=== PATIENT | female | born 1995 | race American Indian/Alaskan Native ===

== ENCOUNTER 2017-01-13 16:29 | Inpatient (IN) | payer MEDICAID ==
[2017-01-13] MEDS ORDERED: COLACE PO PRN (17:28)
[2017-01-13] MEDS ORDERED: MYLICON PO PRN (17:28)
[2017-01-13] MEDS ORDERED: ALUM-MAG HYDROX-SIMETH 200-200-20MG/5ML PO PRN (17:28)
[2017-01-13] MEDS ORDERED: MILK OF MAGNESIA PO PRN (17:28)
[2017-01-13] MEDS ORDERED: BENADRYL PO PRN (17:28)
[2017-01-13] MEDS ORDERED: AMBIEN PO PRN (17:28)
[2017-01-13] MEDS ORDERED: ZOFRAN IV PRN (17:28)
--- NOTE | 2017-01-13 17:40 | History and Physical Report ---
History of Present Illness Date of examination: 01/13/17 Date of admission: sent over from clinic for elevated BP Chief complaint: elevated BP History of present illness: 21 yo at 36+4 weeks admitted to [facility] for elevated BP. This patient has had limited care. Only 3 visits to [facility]. She was treated in for E.coli in urine . Past History Past Medical History: no pertinent history Past Surgical History: no surgical history Family/Genetic History: none Social history: no significant social history, single. denies: smoking, alcohol abuse - Obstetrical History Expected Date of Delivery: 02/06/17 Actual Gestation: 36 Week(s) 5 Day(s) : 1 Para: 0 Hx # Term Pregnancies: 0 Number of Pregnancies: 0 Spontaneous Abortions: 0 Induced : 0 Number of Living Children: 0 Medications and Allergies Allergies Allergy/AdvReac Type Severity Reaction Status Date / Time No Known Allergies Allergy Verified 01/13/17 18:36 Home Medications Medication Instructions Recorded Confirmed Last Taken Type EPINEPHrine [Epipen 2-Jordin] 0.3 mg IM DAILY PRN #1 kit 11/06/14 01/14/17 Unknown Rx predniSONE [Deltasone] 20 mg PO TID #15 tab 03/02/15 01/14/17 Unknown Rx Active Meds: Active Medications Acetaminophen (Tylenol) 650 mg PO Q4H PRN PRN Reason: Pain MILD(1-3)/Fever >100.5/CHARLES Al Hydrox/Mg Hydrox/Simethicone (Alum-Mag Hydrox-Simeth 665-957-32ml/5ml) 30 ml PO Q6H PRN PRN Reason: Indigestion Diphenhydramine HCl (Benadryl) 25 mg PO Q6H PRN PRN Reason: Itching Docusate Sodium (Colace) 100 mg PO Q12H PRN PRN Reason: Constipation Lactated Ringer's (Lactated Ringers) 1,000 mls @ 125 mls/hr IV DIRECT THOMAS Magnesium Hydroxide (Milk Of Magnesia) 30 ml PO QHS PRN PRN Reason: Laxative Effect Multivitamins/Iron/Calcium ( Vitamin) 1 each PO QDAY THOMAS Ondansetron HCl (Zofran) 4 mg IV Q6H PRN PRN Reason: Nausea And Vomiting Simethicone (Mylicon) 80 mg PO Q6H PRN PRN Reason: Gas pain Zolpidem Tartrate (Ambien) 10 mg PO ONCE PRN PRN Reason: Sleep Review of Systems Constitutional: weight gain Eyes: deferred Ears, nose, mouth and throat: deferred Breasts: deferred Gastrointestinal: no nausea, no vomiting Genitourinary: normal appearance, no vaginal bleeding, no vaginal discharge, no leakage of fluid, no contractions Rectal Exam: deferred Integumentary: deferred - Vital Signs Vital signs: Vital Signs Pulse BP 104 H 160/106 01/13/17 17:06 01/13/17 17:06 Temp Pulse Resp BP Pulse Ox 97 H 155/100 01/13/17 17:20 01/13/17 17:20 - Physical Exam Breasts: Positive: normal Cardiovascular: Regular rate, Normal S1, Normal S2 Lungs: Positive: Clear to auscultation, Normal air movement Abdomen: Positive: normal appearance, soft, normal bowel sounds. Negative: distention, tenderness Genitourinary (Female): Positive: normal external genitalia, normal perenium Vagina: Positive: normal moisture Uterus: Positive: enlarged Anus/Rectum: Positive: normal perianal skin Extremities: Positive: normal Deep Tendon Reflex Grade: Normal +2 - Obstetrical FHR: category 1 Results Result Diagrams: 01/13/17 17:59 01/13/17 17:59 All other labs normal. Assessment and Plan A/P HD#1 IUP 36+4 weeks, HTN assess for pree ( Admission) 1. Pree labs 2. EFM 3. US for BPP, size, ena, presentation 4. IOL for preeclampsia with cervidil 5. Mag initiated with mag protocol 6. emergency antihypertensive for >160/109
[2017-01-13 18:34] LABS: Bilirubin,Urine NEG (Negative); Blood,Urine NEG (Negative); Ketones,Urine NEG (Negative); Leukocyte Esterase,Urine TR (Negative); Mucus,Urine 2+ /HPF; Nitrite,Urine NEG (Negative); Protein,Urine <15 mg/dL mg/dL (Negative); Urobilinogen,Urine < 2.0 mg/dL (<2.0)
[2017-01-13 18:42] LABS: Hematocrit 33.4 % (30.3-42.9); Hemoglobin 10.6 gm/dl (10.1-14.3); Mean Corpuscular HGB Conc 32 % (30-34); Mean Corpuscular Volume 80 fl (79-97); Platelet Count 227 K/mm3 (140-440); Red Blood Count 4.19 M/mm3 (3.65-5.03); Red Cell Distribution Width 14.5 % (13.2-15.2); White Blood Count 11.5 K/mm3 (4.5-11.0)
[2017-01-13 18:44] LABS: Mean Corpuscular Hemoglobin 25 pg (28-32)
[2017-01-13 19:02] LABS: Alanine Aminotransferase 8 units/L (7-56); Lactate Dehydrogenase 243 units/L (91-180); Uric Acid 3.5 mg/dL (3.5-7.6)
[2017-01-13] MEDS ORDERED: CERVIDIL VG ONE (21:34)
[2017-01-13] MEDS ORDERED: MAGNESIUM SULFATE 4GM/100ML 4 GM/100 ML BAG IV ONE (21:43)
[2017-01-13] MEDS: MAGNESIUM SULFATE 40GM/1000ML 40 GM/1,000 ML BAG IV SCH ×2 (22:25→23:04)
[2017-01-14] MEDS: TYLENOL PO PRN ×3 (07:00→19:39)
--- NOTE | 2017-01-14 08:04 | Event Note ---
Date: 01/14/17 S: Denies, blurred vision, scotomata, epigastic pain VB or LOF. Good FM reported. voiced +CHARLES, but getting better after medication. O: BP 130-140/90 Magnesium @ 2 grams hr Urine: Mccullough present, patent, 700 cc @ 0315 and 1200cc @ 0745 Ext: trace pedal edema. 1+ reflexes, +SCD's FHT: reactive, category 1 UC: 2-5 x 50-60 mild SVE: Deferred, Cervidil due to be removed @v 1100 A: IUP at 36 weeks Preeclampsia Induction P: Active miranda't
--- NOTE | 2017-01-14 08:34 | Ultrasound Report ---
ULTRASOUND BIOPHYSICAL PROFILE: History: Gestational hypertension Technique: Transabdominal ultrasound with Doppler interrogation. 2 - breathing movements 2 - movements 2 - posture and tone 2 - Qualitative amniotic fluid volume 8 - TOTAL SCORE OF POSSIBLE 8 Heart Rate (bpm) 135
--- NOTE | 2017-01-14 08:37 | Ultrasound Report ---
OB ULTRASOUND History: Gestational hypertension Technique: Transabdominal ultrasound with Doppler interrogation. Gestation: Single Position: Cephalic Amniotic Fluid: Normal FRANSISCO = 14.7 cm Placenta: Anterior Placental Grade: 3 Heart Rate: 135 BPM BPD: 8.8 cm = 35 w 4 d HC: 32.3 cm = 36 w 4 d AC: 32.7 cm = 36 w 4 d FL: 7.1 cm = 36 w 4 d HC/AC Ratio: 0.99 Cephalic Index: 81.6 Estimated Weight: 2947 grams LMP: Not given Clinical age = 36 w 4 d EDC: 02/06/17 US Gest. Age = 36 w 2 d EDC: 01/2617
--- NOTE | 2017-01-14 08:40 | Ultrasound Report ---
ULTRASOUND OB VELOCIMETRY UMBILICAL ARTERY HISTORY: Gestational hypertension. FINDINGS: Transabdominal ultrasound with spectral Doppler interrogation was performed on 3 segments of the umbilical cord. heart rate measures 135 bpm. Normal and persistent spectral waveforms are demonstrated. The S/D ratio average measures 2.61. The resistive index average measures 0.60.
--- NOTE | 2017-01-14 09:01 | Admit Criteria Form ---
Admission Criteria Documentation: OBSTETRIC AND GYNECOLOGIC DISEASE GRG Clinical Indications for Admission to Inpatient Care (Place 'X' for any and all applicable criteria): Hospital admission is needed for appropriate care of the patient because of 1 or more of the following (1)(2)(3): [ ]I. Hemodynamic instability, as indicated by 1 or more of the following (1)( 2)(3)(4)(5): [ ]a) Vital signs or other findings not as expected for chronic patient condition or baseline [ ]b) Instability indicated by 1 or more of the following: [ ]i) Hypotension [ ]ii) Symptomatic tachycardia unresponsive to treatment (eg, analgesia, fluids, sedation as indicated) [ ]iii) Inadequate perfusion indicated by 1 or more of the following: [ ]A. Lactic acidosis (greater than 2 mmol/ L) [ ]B. New abnormal capillary refill ( greater than 3 seconds) [ ]C. Reduced urine output [ ]D. New altered mental status [ ]iv) Orthostatic vital sign changes unresponsive to treatment (eg, fluids) [ ]v) Multiple IV fluid boluses required to maintain adequate blood pressure or perfusion [ ]vi) IV inotropic or vasopressor medication required to maintain adequate blood pressure or perfusion [ ]II. Obstetric infection requiring hospitalization indicated by 1 or more of the following(13)(14): [ ]a) Chorioamnionitis [ ]b) Endometritis (except mild endometritis) [ ]c) Pelvic abscess [ ]d) Peritonitis [ ]e) Septic pelvic thrombophlebitis [ ]III. Amniotic fluid or pulmonary embolism(4)(5)(6) [ ]IV. Suspected peritonitis or ectopic requiring monitoring beyond scope of 24 hours or observation care(7)(8) [ ]V. compromise requiring hospitalization indicated by ALL of the following(9)(10): [ ]a) compromise indicated by 1 or more of the following(11): [ ]i) Abnormal heart rate monitoring [ ]ii) Abnormal contraction stress test [ ]iii) Abnormal biophysical profile [ ]iv) Abnormal Doppler flow in vessels (ie, Doppler velocimetry) (12) [ ]b) Persistence of compromise indicators during evaluation and observation monitoring [ ]. Ovarian hyperstimulation syndrome requiring hospitalization[A] indicated by ALL of the following(15): [ ]a) Recent ovarian stimulation with gonadotropins, or evidence on ultrasound of spontaneous emergence of large number of ovarian follicles [ ]b) Evidence of severe ovarian hyperstimulation syndrome indicated by 1 or more of the following: [ ]i) Abdominal pain unresponsive to oral therapy [ ]ii) Acute respiratory distress syndrome [ ]iii) Electrolyte imbalance ( eg, hyponatremia, hyperkalemia) [ ]iv) Elevated liver enzymes [ ]v) Evidence of thromboembolism [ ]vi) Hemoconcentration (hematocrit greater than 45 % (0.45)) [ ]vii) Inability to maintain oral intake adequate to prevent hemoconcentration [ ]viii) Marked hypotension from baseline (eg, SBP 20 mmHg below patients usual pressure) [ ]ix) Oliguria or anuria [ ]x) Ovarian torsion [ ]xi) Pleural or pericardial effusion on x-ray or echocardiogram [ ]xii) Rapid increase in serum creatinine to greater than 1.2 mg/dL (106 micromoles/L) or creatinine clearance less than 50 mL/min/1.73m2 (0.84 mL/ sec/1.73m2) [ ]xiii) Ruptured ovarian cyst with hemorrhage [ ]xiv) Severe abdominal pain or peritoneal signs [ ]xv) Tense ascites that cannot be managed with paracentesis in outpatient setting [ ]VII.Pelvic infection requiring hospitalization indicated by 1 or more of the following (16): [ ]a) Outpatient treatment has failed or is not appropriate (eg, inpatient monitoring required) [ ]b) Pelvic abscess [ ]c) Surgical emergency cannot be excluded (eg, rigid abdomen) [ ]d) Vomiting precluding outpatient and observation care management VIII. loss complications requiring inpatient medical treatment indicated by 1 or more of the following (4)(7)(9): [ ]a) Fever [ ]b) Peritonitis [ ]c) Sepsis [ ]d) Severe abdominal pain [ ]IX. or patient requiring monitoring for severe heart failure, pulmonary disease, or other comorbid condition (eg, peripartum cardiomyopathy) (4)(17) [ ]X. patient with rupture of membranes requiring hospitalization indicated by ANY ONE of the following: [ ]a) Chorioamnionitis, cloudy amniotic fluid, or other evidence of infection [ ]b) compromise or other need for monitoring (11) [ ]c) Gestation longer than 23 weeks and ANY ONE of the following: [ ]i) Abnormal (noncephalic) presentation [ ]ii) Inadequate home environment (eg, home too far from hospital, unable to rapidly return to hospital) [ ]d) Temperature greater than 100.4 degrees F (38 degrees C)( oral) [ ]e) Threatened labor requiring monitoring beyond scope (eg, over 24 hours) of observation Care [ ] XI. complications, including severe lacerations, infections, or retained placenta (19) [ ] XII.Uterine bleeding with high-risk features indicated by ANY ONE of the following (4): [ ]a) Active major hemorrhage (eg, hemorrhage) [ ]b) Coagulopathy with active bleeding [ ]c) Gestational trophoblastic disease (eg, molar ) (20 ) [ ]d) (longer than 23 weeks) and ANY ONE of the following: [ ]i) Pain [ ]ii) Placental abruption, known or suspected [ ]iii) Placenta accrete, known or suspected(21) [ ]iv) Placenta previa, known or suspected [ ]v) Vasa previa [ ]e) Severe anemia [X ]XIII. Obstetric or Gynecologic Disease, condition or symptom for which ANY ONE of the following: [X ]a) Emergency and observation care have failed or are not considered appropriate ( Also use General Criteria: Observation Care Criteria as appropriate) [ ]b) Presence of a General Admission Criteria or Pediatric General Admission Criteria The original [facility] content created by [facility] has been revised. The portions of the content which have been revised are identified through the use of italic text or in bold, and [facility] has neither reviewed nor approved the modified material.All other unmodified content is copyright [facility]. Please see references footnoted in the original [facility] edition 2016 Admission Criteria Met: Yes
[2017-01-14] MEDS: LACTATED RINGERS 1,000 ML IV SCH ×2 (09:26→21:26)
[2017-01-14] MEDS: PRENATAL VITAMIN PO SCH (10:00)
[2017-01-14] MEDS ORDERED: CYTOTEC VG SCH (12:00)
--- NOTE | 2017-01-14 14:13 | Procedure Note ---
OB Delivery Note - Delivery Date of Delivery: 01/14/17 (5.2oz male) Surgeon: GALI PEREZ Estimated blood loss: 300cc - Vaginal Delivery presentation: vertex Delivery position: OA Intrapartum events: preeclampsia, decreased FHT variability Delivery induction: oxytocin Delivery augmentation: rupture of membranes Delivery monitor: external FHT, external uterine, internal uterine Route of delivery: Delivery placenta: spontaneous Delivery cord: 3 umbilical vessels Episiotomy: none Delivery laceration: other (Left side wall, not bleeding, not repaired) Anesthesia: epidural - A at 1 minute: 8 Infant Gender: Male ( viable male infant over intact perineum. NIUC present for delivery. Stimulated to cry and place skin to skin.)
[2017-01-14] MEDS ORDERED: POLYCILLIN/NS 2 GM/100 ML 2 GM/100 ML BAG IV ONE (15:00)
[2017-01-14] MEDS ORDERED: APRESOLINE IV ONE (15:53)
[2017-01-14] MEDS: MAGNESIUM SULFATE 40GM/1000ML 40 GM/1,000 ML BAG IV SCH (18:30)
[2017-01-14] MEDS ORDERED: CERVIDIL VG ONE (19:30)
[2017-01-14] MEDS: SUBLIMAZE IV PRN (22:58)
--- NOTE | 2017-01-14 23:03 | Event Note ---
Date: 01/14/17 21 yo at 36+5 weeks HD#2 for IOL for preeclampsia on mag. She has received cervicil, cytotec and cervidil. Patient was reexamined and noted to be 1/50/-3 Under sterile condition a speculum placed in patient vagina and cleansed with betadine cook catheter placed in the external os and insufflated with 30 cc of NS and then in the vagina with 30 cc of NS. Patient tolerated procedure well strip cat 1 with contractions noted every 2-3 min Patient is still on Mg for preeclampsia. Mag level to be drawn stat. No record of mag level since yesterday . Plan: continue IOL with cook catheter continue mag close monitor of BP remove catheter in am expect vaginal delivery
[2017-01-15 00:11] LABS: Hematocrit 33.2 % (30.3-42.9); Hemoglobin 10.5 gm/dl (10.1-14.3); Mean Corpuscular HGB Conc 32 % (30-34); Mean Corpuscular Hemoglobin 25 pg (28-32); Mean Corpuscular Volume 80 fl (79-97); Platelet Count 235 K/mm3 (140-440); Red Blood Count 4.14 M/mm3 (3.65-5.03); Red Cell Distribution Width 14.7 % (13.2-15.2); White Blood Count 13.1 K/mm3 (4.5-11.0)
[2017-01-15 00:19] LABS: Alanine Aminotransferase 7 units/L (7-56)
[2017-01-15 03:33] LABS: Lactate Dehydrogenase 191 units/L (91-180); Uric Acid 3.5 mg/dL (3.5-7.6)
[2017-01-15 03:39] LABS: Bilirubin,Urine NEG (Negative); Blood,Urine LG (Negative); Ketones,Urine NEG (Negative); Leukocyte Esterase,Urine NEG (Negative); Mucus,Urine FEW /HPF; Nitrite,Urine NEG (Negative); Protein,Urine <15 mg/dL mg/dL (Negative); Urobilinogen,Urine < 2.0 mg/dL (<2.0)
--- NOTE | 2017-01-15 08:02 | Event Note ---
Date: 01/15/17 S: pain 03/31. Denies other PIH S&S O: BP: 140-150/90 Magnesium Sulfate @ 2grams/hr FHT's: 130 category 1 UC: irregular every 5-7, mild SVE: Deferred. Mccullough bulb intact Mccullough: > 30cc/hr A: IUP @ 36+ weeks Preeclampsia Induction of Labor Unknown GBS status P: Start active Pitocin Continue abx for GBS when bulb expelled
--- NOTE | 2017-01-15 08:46 | Event Note ---
Date: 01/15/17 Patient lying in bed feeling mild contractions. States she feels like catheter is falling out. I insulfated cook catheter without difficulty and SVE /-2 AROM clear fluid Strip cat 1 irreg contractions Plan: start ampicillin start Pitocin continue mag expect vaginal delivery offer epidural
[2017-01-15] MEDS: SUBLIMAZE IV PRN (08:49)
[2017-01-15] MEDS ORDERED: ePHEDrine SULFATE IV PRN ×2 (09:00→10:00)
[2017-01-15] MEDS ORDERED: PITOCin/NS 30 UNIT/500ML 30 UNITS/500 ML BAG IV SCH ×3 (09:00→10:00)
--- NOTE | 2017-01-15 09:14 | Anesthesia Consultation ---
Anesthesia Consult and Med Hx Date of service: 01/15/17 - Airway Anesthetic Teeth Evaluation: Good ROM Head & Neck: Adequate Mental/Hyoid Distance: Adequate Mallampati Class: Class III Intubation Access Assessment: Possibly Difficult - Pre-Operative Health Status Proposed Anesthetic Plan: Epidural, Spinal - Pulmonary Hx Asthma: No COPD: No Hx Pneumonia: No - Cardiovascular System Hx Hypertension: Yes (PIH, possible pre-eclampsia) - Central Nervous System Hx Seizures: No (possible pre-eclampsia) Hx Psychiatric Problems: No - Endocrine Hx Renal Disease: No Hx End Stage Renal Disease: No Hx Hypothyroidism: No Hx Hyperthyroidism: No - Hematic Hx Anemia: No Hx Sickle Cell Disease: No - Other Systems Hx Alcohol Use: No Hx Obesity: Yes (BMI 39.7)
[2017-01-15] MEDS: POLYCILLIN/NS 1 GM/50 ML 1 GM/50 ML BAG IV SCH ×4 (09:35→22:45)
[2017-01-15] MEDS: PRENATAL VITAMIN PO SCH (09:54)
[2017-01-15] MEDS ORDERED: XYLOCAINE 2% INFILTRATI ONE ×2 (10:00→20:32)
[2017-01-15] MEDS ORDERED: BRETHINE IVP PRN (10:00)
[2017-01-15] MEDS ORDERED: PITOCin/NS 20 UNIT/1000ML DRIP 20 UNITS/1,000 ML BAG IV SCH (10:00)
[2017-01-15] MEDS ORDERED: BRETHINE SUB-Q PRN (10:00)
[2017-01-15] MEDS ORDERED: MINERAL OIL PO PRN (10:00)
[2017-01-15] MEDS ORDERED: NARCAN 2 MG/2 ML IV PRN (10:00)
[2017-01-15] MEDS: LACTATED RINGERS 1,000 ML IV SCH ×2 (10:15→19:49)
[2017-01-15] MEDS ORDERED: ePHEDrine SULFATE ONE (10:35)
[2017-01-15] MEDS: fentaNYL-BUPIV 2 MCG/ML-0.125% 200 MCG/100 ML BAG EPIDURAL SCH ×2 (11:24→19:02)
--- NOTE | 2017-01-15 13:01 | Event Note ---
Date: 01/15/17 Pt comfortable with epidural. Cevix /-2. Continue pitocin augmentation. Monitor maternal and status.
[2017-01-15] MEDS: MAGNESIUM SULFATE 40GM/1000ML 40 GM/1,000 ML BAG IV SCH (14:45)
[2017-01-15] MEDS ORDERED: XYLOCAINE MPF 2% ONE (17:35)
--- NOTE | 2017-01-15 17:42 | Event Note ---
Date: 01/15/17 Pt uncomfortable with epidural. Cervix /-2. IUPC placed. Continue routine intrapartum care.
[2017-01-15] MEDS ORDERED: APRESOLINE IV ONE (23:09)
[2017-01-16] MEDS ORDERED: XYLOCAINE 2% INFILTRATI ONE (01:46)
[2017-01-16] MEDS ORDERED: HEMABATE IM ONE (01:46)
[2017-01-16] MEDS ORDERED: CYTOTEC ONE (01:46)
[2017-01-16] MEDS: SUBLIMAZE IV PRN (02:38)
[2017-01-16] MEDS ORDERED: DIPRIVAN 10 MG/ML IV ONE (03:14)
[2017-01-16] MEDS ORDERED: XYLOCAINE MPF 2% ONE ×4 (03:22)
--- NOTE | 2017-01-16 03:56 | Procedure Note ---
OB Delivery Note - Delivery Date of Delivery: 01/16/17 Surgeon: DESTINY BA Estimated blood loss: other (400 mL) - Vaginal Delivery presentation: compound Delivery position: OA Intrapartum events: PROM->1hr before delivery, preeclampsia, prolonged labor- > = 20hr, prolonged latent phase, prolonged active phase, decreased FHT variability, mult.variable deceleratio, other(please specify) (Retained Placenta ) Delivery induction: other (misoprostol, cervidil and pitocin) Delivery augmentation: rupture of membranes, pitocin Delivery monitor: external FHT, external uterine Route of delivery: Delivery placenta: manual (Please see operative note) Episiotomy: none Delivery laceration: other (Two right labial lacerations ) Delivery repair: vicryl Delivery comments: Patient had a protracted labor course and ultimately progressed to complete/ complete/+3 station and pushed to deliver a viable male over intact perineum via spontaneous vaginal delivery under epidural anesthesia. Delivery was compound presentation with hand. Shoulders and body delivered without difficulty. Cord was immediately clamped and cut and was handed to respiratory therapist in attendance. An attempt was made to deliver the placenta unsuccessfully. The vagina and perineum were explored. A right labial laceration was repaired with 2-0 Vicryl in a running fashion. Multiple subsequent attempts were made over the course of 35 minutes to deliver the placenta unsuccessfully. An attempt was made at manual extraction of the placenta but the patient could not tolerate this. The decision was made to proceed with manual extraction of placenta under anesthesia. - Infant A at 1 minute: 2 at 5 minutes: 5 Infant Gender: Male (Apgars 2,5, and 9; 2769g (6lb 2 oz))
--- NOTE | 2017-01-16 03:58 | Post Operative Note ---
Date of procedure: 01/16/17 Pre-op diagnosis: Retained Placenta Post-op diagnosis: same Findings: Retained placenta Procedure: Manual extraction of placenta under anesthesia Anesthesia: epidural Surgeon: DESTINY BA Estimated blood loss: 50-100ml Pathology: list (placenta) Specimen disposition: to lab Condition: stable Disposition: PACU
--- NOTE | 2017-01-16 04:04 | Operative Report ---
Operative Report Operative Report: Date of procedure: 01/16/2017 Preoperative diagnosis: Retained placenta Postoperative diagnosis: same Procedure: Manual extraction of placenta under anesthesia. Repair of right labial laceration Surgeon: Gloria Goins M.D. Findings: Retained placenta EBL: 100 mL IV fluid: 250 mL Urine output: 300 mL, clear prior to the procedure Drains: None Specimen: Placenta to pathology Complications: None. Counts correct 2 Disposition: Stable to PACU Indication for procedure: The patient is 21-year-old primigravida at 37 weeks with status post a spontaneous vaginal delivery. After multiple attempts, the placenta was unable to be spontaneously delivered after 35 minutes. The patient was unable to tolerate manual extraction of placenta secondary to discomfort. Decision was made to proceed with manual extraction of the placenta under anesthesia. Operation in detail: After the risks, benefits, alternatives, and complications of the procedure were explained to the patient taken to the operating room. She was in placement dorsal supine position and SCDs were noted to be in place and functioning. Epidural anesthesia was noted to be adequate. The patient was then placed in the dorsal lithotomy position and prepped and draped in normal sterile fashion. A timeout was performed. The bladder was then drained of 300 mils of clear urine with a red rubber catheter. A ring forcep was used to grasp the umbilical cord for traction. A gloved hand covered with Betadine was placed into the uterine cavity to separate the placenta from the uterus. The placenta was then delivered and sent to pathology. At this time a second right labial laceration was noted and repaired with 3-0 Vicryl in a running fashion. Hemostasis was noted. The uterine fundus was massaged and noted to be firm. At this time the procedure was ended. The patient was replaced into the dorsal supine position and taken to recovery in stable condition. All counts correct 2.
[2017-01-16] MEDS ORDERED: TYLENOL PO PRN (06:08)
[2017-01-16] MEDS ORDERED: TUCKS PAD TP PRN (06:08)
[2017-01-16] MEDS ORDERED: PHENERGAN PR PRN (06:08)
[2017-01-16] MEDS ORDERED: NORCO 5/325 PO PRN (06:08)
[2017-01-16] MEDS ORDERED: MILK OF MAGNESIA PO PRN (06:08)
[2017-01-16] MEDS ORDERED: SODIUM CHLORIDE FLUSH SYRINGE 10 ML IV NR (06:08)
[2017-01-16] MEDS ORDERED: PITOCin/NS 20 UNIT/1000ML DRIP 20 UNITS/1,000 ML BAG IV SCH (06:08)
[2017-01-16] MEDS ORDERED: ZOFRAN IV PRN (06:08)
[2017-01-16] MEDS ORDERED: PHENERGAN PO PRN (06:08)
[2017-01-16] MEDS ORDERED: BENADRYL PO PRN (06:08)
[2017-01-16] MEDS ORDERED: DERMOPLAST TP PRN (06:08)
[2017-01-16] MEDS ORDERED: LANSINOH TP PRN (06:08)
[2017-01-16] MEDS ORDERED: DULCOLAX PR PRN (06:08)
--- NOTE | 2017-01-16 08:59 | Progress Note ---
Assessment and Plan O: BP 120/70 PP H/H: 10.8/32.2 A: PP day 1 36 week induction for PIH S/P D&C P: Continue magnesium for 24hr Monitor elevated pulse rate Subjective - Subjective Date of service: 01/16/17 Patient reports: appetite normal, pain well controlled, other (sanchez present and patent) [place]: doing well Objective - Vital Signs Latest vital signs: Vital Signs Temp Pulse Pulse Resp BP BP Pulse Ox 01/16/17 07:05 115 H 20 151/87 01/16/17 06:00 20 146/82 01/16/17 04:54 97.7 F 104 H 16 135/105 01/16/17 04:15 97 H 16 144/96 100 01/16/17 04:00 22 124/83 99 01/16/17 03:45 99 H 25 H 114/70 98 01/16/17 03:40 97 01/16/17 03:39 97.7 F 01/16/17 02:43 111 H 123/72 01/16/17 02:28 114 H 128/66 01/16/17 02:13 116 H 125/60 01/16/17 01:58 130 H 109/56 01/16/17 01:32 117 H 100 01/16/17 01:28 120 H 125/55 01/16/17 01:27 126 H 100 01/16/17 01:22 124 H 100 01/16/17 01:14 125 H 131/67 01/16/17 01:12 134 H 99 01/16/17 01:07 103 H 100 01/16/17 01:02 104 H 100 01/16/17 00:59 103 H 133/76 01/16/17 00:57 103 H 100 01/16/17 00:52 103 H 124/71 100 01/16/17 00:47 116 H 98 01/16/17 00:45 112 H 96/45 01/16/17 00:44 86 01/16/17 00:42 115 H 100 01/16/17 00:37 116 H 99 01/16/17 00:36 98.3 F 18 01/16/17 00:32 114 H 98 01/16/17 00:29 118 H 108/45 01/16/17 00:27 123 H 100 01/16/17 00:22 141 H 100 01/16/17 00:17 117 H 98 01/16/17 00:13 113 H 133/69 01/16/17 00:12 113 H 99 01/16/17 00:07 114 H 99 01/16/17 00:02 112 H 99 01/15/17 23:58 110 H 123/64 01/15/17 23:57 118 H 99 01/15/17 23:52 115 H 98 01/15/17 23:47 115 H 99 01/15/17 23:44 109 H 112/65 01/15/17 23:42 111 H 99 01/15/17 23:37 122 H 98 01/15/17 23:32 118 H 99 01/15/17 23:28 122 H 158/88 01/15/17 23:27 116 H 100 01/15/17 23:25 98.3 F 01/15/17 23:14 107 H 166/94 01/15/17 22:59 113 H 141/102 01/15/17 22:58 107 H 98 01/15/17 22:53 103 H 99 01/15/17 22:48 103 H 99 01/15/17 22:44 99 H 165/98 01/15/17 22:43 100 H 100 01/15/17 22:38 96 H 100 01/15/17 22:33 103 H 99 01/15/17 22:29 100 H 167/102 01/15/17 22:28 103 H 100 01/15/17 22:23 96 H 100 01/15/17 22:18 101 H 99 01/15/17 22:14 97 H 156/94 01/15/17 22:13 96 H 100 01/15/17 22:10 107 H 158/93 01/15/17 22:08 106 H 100 01/15/17 22:03 107 H 99 01/15/17 21:58 103 H 99 01/15/17 21:53 105 H 99 01/15/17 21:48 104 H 98 01/15/17 21:43 104 H 98 01/15/17 21:38 104 H 100 01/15/17 21:33 101 H 98 01/15/17 21:28 106 H 98 01/15/17 21:23 101 H 98 01/15/17 21:18 98 H 96 01/15/17 21:13 104 H 124/80 97 01/15/17 21:08 118 H 97 01/15/17 21:06 102 H 134/73 01/15/17 21:03 103 H 97 01/15/17 21:01 101 H 129/73 01/15/17 20:58 102 H 96 01/15/17 20:56 101 H 130/73 01/15/17 20:53 104 H 97 01/15/17 20:51 103 H 128/71 01/15/17 20:48 106 H 96 01/15/17 20:46 101 H 129/70 01/15/17 20:43 105 H 97 01/15/17 20:41 107 H 130/72 01/15/17 20:38 111 H 98 01/15/17 20:37 111 H 143/88 01/15/17 20:33 109 H 98 01/15/17 20:28 110 H 99 01/15/17 20:23 107 H 98 01/15/17 20:21 107 H 142/92 01/15/17 20:18 112 H 98 01/15/17 20:13 110 H 99 01/15/17 20:08 105 H 99 01/15/17 20:06 105 H 159/99 01/15/17 20:03 106 H 99 01/15/17 19:58 106 H 99 01/15/17 19:55 97 F L 18 01/15/17 19:53 107 H 98 01/15/17 19:50 111 H 152/88 01/15/17 19:48 98 H 99 01/15/17 19:43 108 H 100 01/15/17 19:38 106 H 99 01/15/17 19:35 98 H 147/96 01/15/17 19:33 104 H 99 01/15/17 19:28 101 H 100 01/15/17 19:23 98 H 98 01/15/17 19:21 99 H 160/79 01/15/17 19:18 99 H 98 01/15/17 19:13 90 99 01/15/17 19:08 111 H 98 01/15/17 19:05 102 H 146/82 01/15/17 19:03 106 H 100 01/15/17 18:58 104 H 100 01/15/17 18:53 93 H 100 01/15/17 18:50 91 H 133/71 01/15/17 18:48 91 H 100 01/15/17 18:43 89 99 01/15/17 18:38 90 100 01/15/17 18:35 88 130/72 01/15/17 18:33 89 100 01/15/17 18:28 89 100 01/15/17 18:23 89 100 01/15/17 18:20 96 H 125/69 01/15/17 18:18 89 100 01/15/17 18:13 89 100 01/15/17 18:08 92 H 100 01/15/17 18:06 96 H 121/71 01/15/17 18:03 92 H 100 01/15/17 17:58 96 H 99 01/15/17 17:53 95 H 99 01/15/17 17:51 99 H 112/58 01/15/17 17:48 103 H 99 01/15/17 17:43 113 H 100 01/15/17 17:38 100 H 100 01/15/17 17:36 96 H 152/86 01/15/17 17:33 93 H 100 01/15/17 17:28 99 H 100 01/15/17 17:23 98 H 100 01/15/17 17:21 107 H 156/89 01/15/17 17:18 106 H 98 01/15/17 17:13 107 H 99 01/15/17 17:08 101 H 98 01/15/17 17:05 101 H 152/85 01/15/17 17:03 98 H 100 01/15/17 16:58 103 H 99 01/15/17 16:53 101 H 100 01/15/17 16:50 100 H 145/81 01/15/17 16:48 102 H 100 01/15/17 16:43 96 H 100 01/15/17 16:38 104 H 100 01/15/17 16:35 102 H 137/80 01/15/17 16:33 106 H 97 01/15/17 16:28 107 H 98 01/15/17 16:23 106 H 98 01/15/17 16:20 108 H 137/76 01/15/17 16:18 110 H 99 01/15/17 16:13 111 H 99 01/15/17 16:08 111 H 98 01/15/17 16:05 114 H 134/84 01/15/17 16:03 109 H 98 01/15/17 15:58 112 H 99 01/15/17 15:53 114 H 98 01/15/17 15:51 108 H 141/79 01/15/17 15:48 108 H 98 01/15/17 15:43 116 H 98 01/15/17 15:38 119 H 100 01/15/17 15:35 104 H 135/76 01/15/17 15:33 120 H 99 01/15/17 15:28 108 H 100 01/15/17 15:23 110 H 100 01/15/17 15:21 109 H 140/85 01/15/17 15:18 113 H 100 01/15/17 15:13 106 H 100 01/15/17 15:08 106 H 99 01/15/17 15:05 105 H 131/73 01/15/17 15:03 106 H 100 01/15/17 14:58 122 H 100 01/15/17 14:53 102 H 99 01/15/17 14:50 101 H 127/72 01/15/17 14:48 105 H 100 01/15/17 14:43 102 H 99 01/15/17 14:38 101 H 99 01/15/17 14:35 100 H 124/70 01/15/17 14:33 101 H 100 01/15/17 14:28 104 H 100 01/15/17 14:23 99 H 100 01/15/17 14:19 103 H 122/69 01/15/17 14:18 103 H 100 01/15/17 14:13 104 H 100 01/15/17 14:08 104 H 100 01/15/17 14:05 104 H 125/72 01/15/17 14:03 103 H 100 01/15/17 13:58 105 H 100 01/15/17 13:53 106 H 100 01/15/17 13:50 105 H 135/78 01/15/17 13:48 99 H 100 01/15/17 13:43 104 H 100 01/15/17 13:38 101 H 100 01/15/17 13:35 104 H 125/76 01/15/17 13:33 102 H 100 01/15/17 13:28 105 H 100 01/15/17 13:23 102 H 100 01/15/17 13:19 102 H 129/77 01/15/17 13:18 104 H 100 01/15/17 13:13 110 H 100 01/15/17 13:08 110 H 100 01/15/17 13:05 102 H 130/77 01/15/17 13:03 105 H 100 01/15/17 12:58 106 H 100 01/15/17 12:53 103 H 100 01/15/17 12:51 99 H 132/78 01/15/17 12:48 104 H 100 01/15/17 12:43 105 H 100 01/15/17 12:38 101 H 100 01/15/17 12:37 98.0 F 01/15/17 12:35 105 H 143/96 01/15/17 12:33 110 H 100 01/15/17 12:28 104 H 100 01/15/17 12:23 96 H 100 01/15/17 12:19 95 H 144/90 01/15/17 12:18 95 H 100 01/15/17 12:13 94 H 100 01/15/17 12:08 96 H 100 01/15/17 12:04 92 H 142/87 01/15/17 12:03 96 H 100 01/15/17 11:58 97 H 100 01/15/17 11:53 96 H 100 01/15/17 11:49 95 H 145/89 01/15/17 11:48 94 H 100 01/15/17 11:43 97 H 100 01/15/17 11:38 95 H 100 01/15/17 11:35 96 H 142/87 01/15/17 11:33 96 H 100 01/15/17 11:28 98 H 98 01/15/17 11:23 100 H 97 01/15/17 11:20 105 H 140/83 01/15/17 11:18 103 H 97 01/15/17 11:13 107 H 98 01/15/17 11:08 108 H 97 01/15/17 11:03 105 H 139/79 97 01/15/17 11:01 108 H 136/73 01/15/17 10:59 102 H 134/71 01/15/17 10:58 102 H 98 01/15/17 10:57 108 H 137/67 01/15/17 10:55 113 H 140/67 01/15/17 10:54 106 H 128/81 01/15/17 10:53 102 H 97 01/15/17 10:51 95 H 124/68 01/15/17 10:49 97 H 119/67 01/15/17 10:48 97 H 98 01/15/17 10:47 107 H 134/84 01/15/17 10:45 103 H 139/88 01/15/17 10:43 111 H 98 01/15/17 10:37 106 H 141/99 01/15/17 10:36 107 H 99 01/15/17 10:31 102 H 98 01/15/17 10:26 103 H 98 01/15/17 10:20 110 H 99 01/15/17 10:15 107 H 98 01/15/17 10:10 107 H 98 01/15/17 10:08 98 H 155/98 01/15/17 10:05 98 H 98 01/15/17 10:00 103 H 98 01/15/17 09:55 101 H 97 01/15/17 09:50 104 H 98 01/15/17 09:45 104 H 98 01/15/17 09:40 101 H 98 01/15/17 09:37 102 H 142/97 01/15/17 09:35 107 H 98 01/15/17 09:30 102 H 98 01/15/17 09:25 103 H 98 01/15/17 09:20 102 H 96 01/15/17 09:15 105 H 95 01/15/17 09:10 104 H 96 01/15/17 09:07 105 H 142/79 94 01/15/17 09:05 106 H 98 01/15/17 09:00 103 H 97 Intake and Output 01/15/17 01/16/17 01/16/17 22:59 06:59 14:59 Intake Total 1050 920 Output Total 2950 Balance 1050 -2029 Intake: IV 1050 800 Lactated Ringers 1,000 ml 1000 @ 125 mls/hr IV DIRECT THOMAS Rx#:[id number] POLYCILLIN/NS 1 GM/50 ML 50 1 gm In 50 ml @ 100 mls/ hr IV Q4H THOMAS Rx#: [id number] Oral 120 Output: Urine 2950 Indwelling Catheter 1500 Uretheral (Sanchez) 575 Other: Total, Intake Amount 120 Total, Output Amount 600 Estimated Blood Loss 500 - Exam Breasts: Present: deferred Lungs: Present: Normal air movement Abdomen: Present: normal appearance, soft. Absent: distention, tenderness Uterus: Present: normal, firm, fundal height at umbilicus. Absent: bogginess, tenderness Extremities: Present: normal, edema (1+) - Labs Labs: Abnormal lab results 01/15/17 01/15/17 01/15/17 Range/Units 13:24 15:18 23:30 Magnesium 4.6 H 4.8 H 5.6 H (1.7-2.3) mg/dL 01/16/17 Range/Units 06:00 Magnesium 4.2 H (1.7-2.3) mg/dL
[2017-01-16 09:53] LABS: Hematocrit 32.5 % (30.3-42.9); Hemoglobin 10.4 gm/dl (10.1-14.3)
[2017-01-16] MEDS: FEOSOL PO SCH ×2 (10:32→22:08)
[2017-01-16] MEDS: PRENATAL VITAMIN PO SCH (10:33)
[2017-01-16] MEDS: MOTRIN PO SCH (16:16)
[2017-01-17] MEDS ORDERED: BOOSTRIX IM ONE (06:00)
[2017-01-17] MEDS ORDERED: M-M-R II VACCINE SUB-Q ONE (06:00)
--- NOTE | 2017-01-17 08:50 | Progress Note ---
Assessment and Plan A/P PPD#1 s/p , manual extraction and PIH 1.doing well, breast feeding 2 resolving tachy 3. BP normalizing no sx of PIH 4. rh+ no rhogam indicated 5. s/p mag urinating appropriately 6. consider d/c home tomorrow 7. male -instructed to call for circumcision Subjective - Subjective Date of service: 01/17/17 Principal diagnosis: s/p s/p manual extraction s/p mag for PIH Interval history: 21 yo at 36+4 weeks admitted to [facility] for elevated BP. This patient has had limited care. Only 3 visits to [facility]. She was treated in for E.coli in urine . Patient reports: appetite normal, voiding normally, pain well controlled, flatus : doing well, nursing well Objective - Vital Signs Latest vital signs: Vital Signs Temp Pulse Resp BP BP 01/17/17 00:00 98.9 F 101 H 20 141/82 01/16/17 20:05 98.6 F 100 H 20 138/63 01/16/17 16:30 98.2 F 111 H 20 146/73 01/16/17 14:47 98.9 F 119 H 20 126/66 01/16/17 12:44 98.7 F 112 H 20 136/80 01/16/17 10:35 112 H 20 135/63 135/63 Intake and Output 01/16/17 01/17/17 01/17/17 22:59 06:59 14:59 Intake Total 240 Output Total 1000 Balance -1000 240 Intake: Oral 240 Output: Urine 1000 Void 1000 Other: Total, Intake Amount 240 Total, Output Amount 300 Voiding Method Toilet # Voids Void 1 1 - Exam Breasts: Present: normal Cardiovascular: Present: Regular rate, Normal S1, Normal S2 Lungs: Present: Clear to auscultation, Normal air movement Abdomen: Present: normal appearance, soft, normal bowel sounds. Absent: distention, tenderness Vulva: both: normal Uterus: Present: normal, firm, fundal height below umbilicus (3cm below). Absent: bogginess, tenderness Extremities: Present: normal Deep Tendon Reflex Grade: Normal +2 - Labs Labs: Abnormal lab results 01/16/17 Range/Units 14:09 Magnesium 3.7 H (1.7-2.3) mg/dL
--- NOTE | 2017-01-17 08:54 | Discharge Summary ---
Providers - Providers Date of Admission: 01/13/17 19:33 Date of discharge: 01/18/17 Attending physician: LLOYD SIMMONS MD 01/16/17 06:08 Consult to Tool And Die Technician [CONS] Routine Reason For Exam: assistance with , SNS Primary care physician: LLOYD SIMMONS MD Hospitalization Reason for admission: IUP - , induction of labor (preeclampsia ) Delivery: Episiotomy: none Incision: normal Other procedures: curettage Discharge diagnosis: delivery baby: male Condition at discharge: Good Disposition: DISCHARGED TO HOME OR SELFCARE Plan - Provider Discharge Summary Activity: routine, no sex for 6 weeks Diet: routine Instructions: routine Additional instructions: [] Smoking cessation referral if applicable(refer to patient education folder for contact #) [] Refer to [facility] Booklet Call your doctor immediately for: * Fever > 100.5 * Heavy vaginal bleeding ( >1 pad per hour) * Severe persistent headache * Shortness of breath * Reddened, hot, painful area to leg or breast * Drainage or odor from incision. * Keep incision clean and dry at all times and follow doctor's instructions regarding bathing/showering - Follow up plan Follow up: LLOYD SIMMONS MD [Primary Care Provider] - 7 Days
[2017-01-17] MEDS: FEOSOL PO SCH ×2 (10:04→23:56)
[2017-01-17] MEDS: PRENATAL VITAMIN PO SCH (10:04)
[2017-01-17] MEDS: MOTRIN PO SCH ×3 (11:54→23:55)
--- NOTE | 2017-01-17 15:15 | Progress Note ---
Subjective Date of service: 01/17/17 Principal diagnosis: s/p s/p manual extraction s/p mag for PIH Interval history: no anesthetic complications. Happy with anesthesia, ambulating well Objective - Constitutional Vitals: Vital Signs - 12hr 01/17/17 01/17/17 08:51 11:46 Temperature 98.6 F 98.7 F Pulse Rate [ 98 H 90 Left From Monitor] Respiratory 20 20 Rate Blood Pressure 120/66 130/70 [Left Arm] - Labs CBC & Chem 7: 01/16/17 07:20 01/14/17 23:30
[2017-01-18] MEDS: MOTRIN PO SCH (05:53)
[2017-01-18 10:03] VITALS: BP 133/76
[2017-01-18] MEDS: PRENATAL VITAMIN PO SCH (10:17)
[2017-01-18] MEDS: FEOSOL PO SCH (10:17)
== END 2017-01-18 12:05 | disposition home or self-care (01) | DRG 767 ==
LOC: TRG 16:29 → LD 19:33 → OB 01-16 05:43
PROVIDERS: ADMIT Obstetrics & Gynecology; ATTEND Obstetrics & Gynecology
PROC: 3E033VJ Introduction of Other Hormone into Peripheral Vein, Percutaneous Approach (ICD-10-PCS; principal; 2017-01-13)
PROC: 10E0XZZ Delivery of Products of Conception, External Approach (ICD-10-PCS; 2017-01-13)
PROC: 3E0S3CZ (ICD-10-PCS; 2017-01-13)
PROC: 00HU33Z Insertion of Infusion Device into Spinal Canal, Percutaneous Approach (ICD-10-PCS; 2017-01-13)
PROC: 10D17ZZ Extraction of Products of Conception, Retained, Via Natural or Artificial Opening (ICD-10-PCS; 2017-01-16)
PROC: 0UQMXZZ Repair Vulva, External Approach (ICD-10-PCS; 2017-01-16)
DX: O14.94 Unspecified pre-eclampsia, complicating childbirth (principal); O60.14X0 Preterm labor third trimester with preterm delivery third trimester, not applicable or unspecified; O63.1 Prolonged second stage (of labor); O63.0 Prolonged first stage (of labor); O76 Abnormality in fetal heart rate and rhythm complicating labor and delivery; O73.0 Retained placenta without hemorrhage; O70.0 First degree perineal laceration during delivery; Z37.0 Single live birth; Z3A.36 36 weeks gestation of pregnancy
CPT/HCPCS: 36415; 59025; 59200; 76816; 76819; 76820; 81001; 82565; 83615; 83735; 84450; 84460; 84550; 85014; 85018; 85027; 86850; 86900; 86901; 88307; 99211; A6250; G0463; J0290; J0360; J2590; J2704; J3010; J3475; J7120

== ENCOUNTER 2017-08-29 00:54 | Outpatient (CLI) | payer OTHER ==
[2017-08-29] MEDS ORDERED: LACTATED RINGERS 500 ML IV ONE (01:06)
[2017-08-29 01:16] VITALS: BP 122/77
== END 2017-08-29 01:55 | disposition home or self-care (01) ==
LOC: TRG 00:54
PROVIDERS: ATTEND Obstetrics & Gynecology
DX: O62.9 Abnormality of forces of labor, unspecified (principal); O47.02 False labor before 37 completed weeks of gestation, second trimester; Z3A.27 27 weeks gestation of pregnancy
CPT/HCPCS: 59025; J7120

== ENCOUNTER 2017-11-03 19:05 | Outpatient (CLI) | payer OTHER ==
[2017-11-03] MEDS ORDERED: LACTATED RINGERS 500 ML IV ONE (19:07)
[2017-11-03 19:55] LABS: Bacteria,Urine 1+ /HPF (Negative); Bilirubin,Urine NEG (Negative); Blood,Urine NEG (Negative); Color,Urine Yellow (Yellow); Mucus,Urine 2+ /HPF; Nitrite,Urine NEG (Negative); Protein,Urine <15 mg/dL mg/dL (Negative)
[2017-11-03 20:02] VITALS: BP 129/81
[2017-11-03 20:38] LABS: Alanine Aminotransferase 7 units/L (7-56); Uric Acid 3.9 mg/dL (3.5-7.6)
[2017-11-03 20:47] LABS: Hematocrit 33.9 % (30.3-42.9); Hemoglobin 10.8 gm/dl (10.1-14.3); Mean Corpuscular HGB Conc 32 % (30-34); Mean Corpuscular Volume 77 fl (79-97); Platelet Count 250 K/mm3 (140-440); Red Blood Count 4.38 M/mm3 (3.65-5.03); Red Cell Distribution Width 15.9 % (13.2-15.2)
[2017-11-03 20:50] LABS: Mean Corpuscular Hemoglobin 25 pg (28-32)
== END 2017-11-03 21:20 | disposition home or self-care (01) ==
LOC: TRG 19:05
PROVIDERS: ATTEND Obstetrics & Gynecology
DX: O47.03 False labor before 37 completed weeks of gestation, third trimester (principal); Z3A.36 36 weeks gestation of pregnancy
CPT/HCPCS: 36415; 59025; 81001; 82565; 83615; 84450; 84460; 84550; 85027

== ENCOUNTER 2021-03-16 12:05 | Outpatient (CLI) | payer OTHER ==
[2021-03-16] MEDS ORDERED: LACTATED RINGERS 1,000 ML IV ONE ×2 (12:48→14:51)
[2021-03-16 13:11] LABS: Hematocrit 33.9 % (30.3-42.9); Hemoglobin 10.8 gm/dl (10.1-14.3); Mean Corpuscular HGB Conc 32 % (30-34); Mean Corpuscular Volume 77 fl (79-97); Platelet Count 249 K/mm3 (140-440); Red Blood Count 4.42 M/mm3 (3.65-5.03)
[2021-03-16 13:27] LABS: Bilirubin,Urine NEG (Negative); Blood,Urine NEG (Negative); Color,Urine Straw (Yellow); Protein,Urine <15 mg/dL mg/dL (Negative); Urobilinogen,Urine < 2.0 mg/dL (<2.0); WBC,Urine < 1.0 /HPF (0.0-6.0)
[2021-03-16 13:34] LABS: Alanine Aminotransferase 8 units/L (7-56); Uric Acid 3.3 mg/dL (3.5-7.6)
[2021-03-16 15:48] VITALS: BP 124/66
--- NOTE | 2021-03-16 18:07 | Ultrasound Report ---
US OB LIMITED, US OB BPP WO NON-STRESS INDICATION / CLINICAL INFORMATION: FRANSISCO, INCREASED BLOOD PRESSURES. COMPARISON: None available. FINDINGS: breathing movement = 2 Gross body movement = 2 tone = 2 Qualitative amniotic fluid volume = 2 Total biophysical score = 8/8 Amniotic fluid index is 10.6 cm. Presentation is Cephalic. heart rate is 155 beats per minute. IMPRESSION: biophysical profile = 04/29 lie is cephalic. Amniotic fluid index is within normal limits. Signer Name: Wang Cates MD Signed: 03/16/2021 6:03 PM Workstation Name: [id number]
== END 2021-03-16 17:29 | disposition home or self-care (01) ==
LOC: TRG 12:05 → APU 12:07 → TRG 17:22
DX: O13.3 Gestational [pregnancy-induced] hypertension without significant proteinuria, third trimester (principal); Z3A.36 36 weeks gestation of pregnancy
CPT/HCPCS: 36415; 76815; 76819; 81001; 82565; 83615; 84450; 84460; 84550; 85027; J7120

== ENCOUNTER 2021-03-27 15:47 | Outpatient (CLI) | payer OTHER ==
[2021-03-27 16:34] VITALS: BP 130/75
== END 2021-03-27 17:16 | disposition home or self-care (01) ==
LOC: TRG 15:47 → APU 16:47 → TRG 17:16
DX: Z34.93 Encounter for supervision of normal pregnancy, unspecified, third trimester (principal); Z3A.37 37 weeks gestation of pregnancy
CPT/HCPCS: 59025

== ENCOUNTER 2021-03-30 04:53 | Inpatient (IN) | payer OTHER ==
[2021-03-30] MEDS ORDERED: FAMOTIDINE 20 MG/2 ML INJ IV ONE (05:43)
[2021-03-30] MEDS ORDERED: METOCLOPRAMIDE 10 MG/2 ML INJ IV ONE (05:43)
[2021-03-30] MEDS ORDERED: BICITRA ORAL LIQD 30ML PO ONE (05:43)
[2021-03-30] MEDS ORDERED: OXYTOCIN DRIP 30 UNITS/500 ML BAG IV SCH ×3 (06:00→11:00)
[2021-03-30] MEDS ORDERED: ceFAZolin/Water 2 GM/20 ML 2 GM/20 ML SYRINGE IV NR (06:00)
[2021-03-30 06:33] LABS: Basophils % (Auto) 0.1 % (0.0-1.8); Eosinophils # (Auto) 0.1 K/mm3 (0.0-0.4); Eosinophils % (Auto) 0.8 % (0.0-4.3); Hematocrit 35.4 % (30.3-42.9); Hemoglobin 11.3 gm/dl (10.1-14.3); Lymphocytes # (Auto) 2.8 K/mm3 (1.2-5.4); Lymphocytes % (Auto) 25.9 % (13.4-35.0); Mean Corpuscular HGB Conc 32 % (30-34); Mean Corpuscular Volume 77 fl (79-97); Monocytes # (Auto) 0.6 K/mm3 (0.0-0.8); Monocytes % (Auto) 5.5 % (0.0-7.3); Platelet Count 259 K/mm3 (140-440); Red Blood Count 4.63 M/mm3 (3.65-5.03); Red Cell Distribution Width 17.1 % (13.2-15.2)
--- NOTE | 2021-03-30 06:59 | Anesthesia Consultation ---
Anesthesia Consult and Med Hx Date of service: 03/30/21 - Airway Anesthetic Teeth Evaluation: Good ROM Head & Neck: Adequate Mental/Hyoid Distance: Adequate Mallampati Class: Class II Intubation Access Assessment: Probably Good - Pulmonary Exam CTA: Yes - Cardiac Exam Cardiac Exam: RRR - Pre-Operative Health Status ASA Pre-Surgery Classification: ASA3 Proposed Anesthetic Plan: Spinal - Pulmonary Hx Asthma: No COPD: No Hx Pneumonia: No - Cardiovascular System Hx Hypertension: No - Central Nervous System Hx Seizures: No Hx Psychiatric Problems: No - Endocrine Hx Renal Disease: No Hx End Stage Renal Disease: No Hx Hypothyroidism: No Hx Hyperthyroidism: No - Hematic Hx Anemia: No Hx Sickle Cell Disease: No - Other Systems Hx Alcohol Use: No Hx Obesity: Yes
--- NOTE | 2021-03-30 06:59 | Anesthesia Day of Surgery ---
Anesthesia Day of Surgery - Day of Surgery Patient Examined: Yes Patient H&P Reviewed: Yes Patient is NPO: Yes
[2021-03-30] MEDS ORDERED: BUPIVACAINE/PF (0.5%) 5 MG/1 ML 30 ML VIAL INFILTRATI ONE (07:20)
[2021-03-30] MEDS ORDERED: dexAMETHasone 20 MG/5 ML VIAL ONE (07:20)
[2021-03-30] MEDS ORDERED: SODIUM CHLORIDE 0.9% 200 ML ONE (07:20)
[2021-03-30] MEDS ORDERED: KETOROLAC 30 MG/1 ML INJ ONE (07:20)
[2021-03-30] MEDS ORDERED: PHENYLEPHRINE 10 MG/1 ML INJ SDV ONE (07:20)
[2021-03-30] MEDS ORDERED: ONDANSETRON 4 MG/2 ML INJ ONE (07:20)
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
[2021-03-30] MEDS: LACTATED RINGERS 1,000 ML IV SCH ×3 (08:10→21:55)
[2021-03-30] MEDS ORDERED: LACTATED RINGERS 1,000 ML IV SCH (08:30)
[2021-03-30] MEDS ORDERED: FAMOTIDINE 20 MG/2 ML INJ IV SCH (08:30)
[2021-03-30] MEDS ORDERED: METOCLOPRAMIDE 10 MG/2 ML INJ IV SCH (08:30)
[2021-03-30] MEDS ORDERED: BICITRA ORAL LIQD 30ML PO SCH (08:30)
[2021-03-30] MEDS ORDERED: OXYTOCIN 10 UNIT/1 ML INJ ONE (09:24)
[2021-03-30] MEDS ORDERED: LACTATED RINGERS 1,000 ML ONE (09:48)
[2021-03-30] MEDS ORDERED: LANOLIN/ZINC/DIMETHICONE (LANSINOH) 7 GM TP PRN (10:13)
[2021-03-30] MEDS ORDERED: NALOXONE 0.4 MG/1 ML INJ IV PRN (10:13)
[2021-03-30] MEDS ORDERED: WITCH HAZEL/ GLYCERIN PAD TP PRN (10:13)
[2021-03-30] MEDS ORDERED: MORPHINE 2 MG/1 ML INJ IV PRN (10:15)
[2021-03-30] MEDS ORDERED: KETOROLAC 30 MG/1 ML INJ IV PRN (10:15)
[2021-03-30] MEDS ORDERED: MORPHINE 4 MG/1 ML INJ IV PRN (10:15)
[2021-03-30] MEDS ORDERED: ONDANSETRON 4 MG/2 ML INJ IV PRN (10:15)
[2021-03-30] MEDS ORDERED: SIMETHICONE 80 MG CHEW TAB PO PRN (10:15)
[2021-03-30] MEDS ORDERED: HYDROCORTISONE 25 MG RECTAL SUPP PR PRN (10:15)
[2021-03-30 10:16] LABS: Hepatitis B Surface Antigen Non-Reactive (Negative); Hepatitis C Virus Antibody Non-Reactive (NonReactive)
--- NOTE | 2021-03-30 10:24 | Procedure Note ---
Date of procedure: 03/30/21 Pre-op diagnosis: 38 wksiup, possible iugr Post-op diagnosis: same Procedure: Procedure was repeat low transverse section, bilateral tubal ligation Nereida technique, lysis of omental adhesions. Time of surgery was 56 minutes. Anesthesia was spinal. Estimated blood loss 500 cc. Fluid IV was 1000 cc urine output was 100 cc. Baby was a male weighing 6 pounds 14.8 ounces with Apgars 9 and 9. The patient was taken to the operatory where she was given an indwelling Mccullough catheter and she had a spinal anesthetic administered adequate enough for the procedure she was then prepped and draped in usual manner ventilating the supine position. We created a Pfannenstiel incision into the abdominal cavity anatomically. Vesicouterine peritoneum was opened transversely with Metzenbaums. A low transverse incision was made in the lower uterine segment with the scalpel and fetus in occiput posterior presentation was delivered had a nuchal cord x1. Oropharyngeal suction nasopharynx suction resume was delivered without incident cord was doubly clamped and cut fetus passed off the table to the nurses in attendance. No cord blood was obtained placenta was then delivered manually intact. Uterus was cleaned of debris membranes and tissue. The uterine incision was repaired in 2 layers first layer was in the deep myometrium using running locking #0 chromic in a running locking fashion superficial myometrium was closed with a running locking 0 chromic in a locking fashion uterine incision was hemostatic. Vesicouterine peritoneum was closed with 2-0 chromic continuous fashion. We inspected the tubes and ovaries first the isthmic portion of each fallopian tube was individually not cut with a [place] a window was made in the broad ligament the Bovie and a 2 cm segment of fallopian tube was tied distally and proximally with 2-0 chromic the ligated portion fallopian tube was removed with Metzenbaums and sent for pathological inspection the same procedure be done on both the right and left fallopian tube the fallopian tubes were hemostatic probably was hemostatic we suction out the posterior cul-de-sac and gutters all instruments removed from abdominal care instrument count needle lap sponge count was correct he was dropped back into the abdominal cavity anterior abdominal peritoneum was repaired running 2-0 chromic fascia repaired running locking 0 Vicryl subcutaneous is repaired running 2-0 chromic skin was repaired running subcuticular 4-0 Vicryl on a Bravo needle and drained with Dermabond patient tolerated procedure well she was then returned to the recovery room in stable condition. Anesthesia: spinal Surgeon: XAVIER VILALNUEVA Estimated blood loss: other (500) IV fluids: 1,000 Urine output: 100 Pathology: none Specimen disposition: discarded Condition: stable Disposition: PACU
--- NOTE | 2021-03-30 10:31 | Progress Note ---
Spinal Anesthesia Block - Spinal Anesthesia Block Start Time: 08:44 Stop Time: 08:47 Performed by:: LATESHA OLIVIA Procedure: Sitting, sterile chlorahexadine 0.5% prep/drape, 1% lidocaine skin local, 25G spinal needle + introducer at L3-4, + CSF, - Heme, [1.9 ml 0.5% bupivacaine + 10 mcg dexmedetomidine] injected, drape removed, patient positioned supine with left uterine displacement, and spinal level verified to be adequate prior to surgery. Brent BARAHONA
--- NOTE | 2021-03-30 10:32 | Progress Note ---
Regional Anesthesia Block - Regional Anesthesia Block Start Time: 10:20 Stop Time: 10:25 Performed By:: LATESHA OLIVIA Procedure: U/S guided bilateral tap block performed for post-operative pain requested by Dr. Nickerson. H&P & labs reviewed. Procedure explained, questions answered, consent obtained. Patient in the supine position with ekg, blood pressure cuff and pulse ox on and working in PACU. Timeout performed immediately before start of procedure. Probe placed in the mid-axillary line and the external oblique, internal oblique, and transverse abdominus muscles identified. Skin was cleansed with chlorahexadine 0.5% and allowed to dry. A 4" 20 G Ellis echogenic needle was advanced in plane until the tip was in the fascial plane between the internal oblique and the transverse abdominus. After negative aspiration 35 ml/side of [30 ml 0.5% Bupivacaine], [10 mg dexamethasone], and [40 ml sterile saline] was injected in 5 ml increments with negative aspiration in between. Patient tolerated procedure well. Brent BARAHONA
[2021-03-30] MEDS: ceFAZolin/NS 1 GM/50 ML 1 GM/50 ML BAG IV SCH ×2 (13:38→21:54)
[2021-03-30] MEDS: FERROUS SULFATE 325 MG TAB PO SCH (13:38)
[2021-03-30] MEDS: PRENATAL VIT27-FE FUMARATE-FOLIC ACID VIT TAB PO SCH (13:39)
[2021-03-31 01:15] LABS: Hematocrit 30.8 % (30.3-42.9); Hemoglobin 9.7 gm/dl (10.1-14.3)
[2021-03-31] MEDS ORDERED: TETANUS,DIPH,PERTUSS(ACELL) VACCINE 0.5 ML SYRINGE IM ONE (06:00)
[2021-03-31] MEDS ORDERED: MEASLES, MUMPS & RUBELLA 12,500 UNIT/0.5 ML VACCINE SUB-Q ONE (06:00)
[2021-03-31] MEDS: FERROUS SULFATE 325 MG TAB PO SCH (09:01)
[2021-03-31] MEDS: PRENATAL VIT27-FE FUMARATE-FOLIC ACID VIT TAB PO SCH (09:01)
[2021-03-31] MEDS: HYDROcodone/ACETAMINOPHEN 5-325 MG TAB PO PRN ×2 (09:02→16:38)
--- NOTE | 2021-03-31 19:04 | Progress Note ---
Assessment and Plan POD#1 C/Section with mild maternal tacchy, unknown cause, asymptomatic 1. Will repeat CBC and if stable, may discharge home on 04/01/21 as desired by pt 2. Routine post op care All questions encouraged and answered Subjective Date of service: 03/31/21 Principal diagnosis: POD#1 Interval history: pt desires to go home tomorrow because she has other children to take care of. Pain controlled well with meds. Denies dysuria. Pt is breast feeding and happy with her current permanent sterilization. Tolerates regular diet. Objective - Constitutional Vitals: Vital Signs - 12hr 03/31/21 03/31/21 03/31/21 07:38 09:02 16:38 Temperature 98.3 F Pulse Rate 102 H Respiratory 20 20 20 Rate Blood Pressure 134/80 O2 Sat by Pulse 98 Oximetry General appearance: Present: no acute distress - Respiratory Respiratory effort: normal - Breasts Breasts: normal - Cardiovascular Rhythm: other (mild tacchycardia) Extremities: No edema - Gastrointestinal General gastrointestinal: Present: soft, non-tender, other (incision with dermabond and slight damp without drainage most likely due to habitus) - Genitourinary Female genitourinary: deferred - Psychiatric Psychiatric: appropriate mood/affect - Labs CBC & Chem 7: 03/31/21 00:34 Labs: Abnormal lab results 03/31/21 Range/Units 00:34 Hgb 9.7 L (10.1-14.3) gm/dl Medications & Allergies - Medications Allergies/Adverse Reactions: Allergies No Known Allergies Allergy (Verified 03/30/21 08:18) Home Medications: Home Medications Medication Instructions Recorded Confirmed Last Taken Type Ferrous Sulfate [Feosol] 325 mg PO QDAY #30 tablet 11/23/17 03/30/21 03/28/21 Rx Aspirin BABY CHEW TAB 1 tab PO DAILY 03/30/21 03/30/21 03/28/21 History Vitamin 1 tab PO DAILY 03/30/21 03/30/21 03/28/21 History Active Medications: Generic Name Dose Route Start Last Admin Trade Name Freq PRN Reason Stop Dose Admin Hydrocodone Bitart/Acetaminophen 2 each 03/30/21 22:31 03/31/21 16:38 Hydrocodone/Acetaminophen 5-325 Mg Tab PO 2 each Q6H PRN Administration Pain, Moderate (4-6) Ferrous Sulfate 325 mg 07/09/21 11:00 03/31/21 09:01 Ferrous Sulfate 325 Mg Tab PO 325 mg QDAY THOMAS Administration Hydrocortisone Acetate 25 mg 03/30/21 10:15 Hydrocortisone 25 Mg Rectal Supp [place] BID PRN Hemorrhoids Oxytocin/Sodium Chloride 30 units in 500 mls @ 0 mls/hr 03/30/21 06:00 Pitocin/Ns 30 Unit/500ml IV TITR THOMAS Protocol As Directed Oxytocin/Sodium Chloride 30 units in 500 mls @ 0 mls/hr 03/30/21 08:00 Pitocin/Ns 30 Unit/500ml IV TITR THOMAS Protocol As Directed Oxytocin/Sodium Chloride 30 units in 500 mls @ 40 mls/hr 03/30/21 11:00 Pitocin/Ns 30 Unit/500ml IV TITR THOMAS Protocol Ketorolac Tromethamine 15 mg 03/30/21 10:15 03/30/21 21:54 Ketorolac 30 Mg/1 Ml Inj IV 04/04/21 10:14 15 mg Q6H PRN Administration Pain, Mild (1-3) Morphine Sulfate 2 mg 03/30/21 10:15 03/30/21 17:58 Morphine 2 Mg/1 Ml Inj IV 2 mg Q4H PRN Administration Pain, Moderate (4-6) Morphine Sulfate 4 mg 03/30/21 10:15 Morphine 4 Mg/1 Ml Inj IV Q4H PRN Pain , Severe (7-10) Multi-Ingredient Ointment 1 applic 03/30/21 10:13 Lanolin/Zinc/Dimethicone (Lansinoh) 7 Gm TP PRN PRN dryness/cracking Multivitamins/Iron/Calcium 1 each 03/30/21 11:00 03/31/21 09:01 [id number] Fumarate-Folic Acid Vit Tab PO 1 each QDAY THOMAS Administration Naloxone HCl 0.1 mg 03/30/21 10:13 Naloxone 0.4 Mg/1 Ml Inj IV Q2MIN PRN Res Rate </= 8 or 02 SAT < 92% Ondansetron HCl 4 mg 03/30/21 10:15 Ondansetron 4 Mg/2 Ml Inj IV Q8H PRN Nausea And Vomiting Simethicone 80 mg 03/30/21 10:15 Simethicone 80 Mg Chew Tab PO Q6H PRN Gas pain Witch Gabriela/Glycerin 1 each 03/30/21 10:13 Witmario Gabriela/ Glycerin Pad TP PRN PRN Hemorrhoids/cleansing/soothing
[2021-03-31] MEDS: IBUPROFEN 800 MG TAB PO PRN (20:53)
--- NOTE | 2021-03-31 21:11 | Post Anesthesia Evaluation ---
- Post Anesthesia Evaluation Patient Participated: Yes Airway Patent: Yes Stable Respiratory Function: Yes Nausea/Vomiting: No Temp > 96.8F: Yes Pain Manageable: Yes Adequeate Hydration: Yes Anesthesia Complications: No Block Receding Appropriately: Yes
[2021-04-01] MEDS: HYDROcodone/ACETAMINOPHEN 5-325 MG TAB PO PRN (03:53)
[2021-04-01 08:31] LABS: Basophils # (Auto) 0.1 K/mm3 (0.0-0.1); Basophils % (Auto) 0.8 % (0.0-1.8); Eosinophils # (Auto) 0.2 K/mm3 (0.0-0.4); Eosinophils % (Auto) 1.7 % (0.0-4.3); Hematocrit 30.9 % (30.3-42.9); Hemoglobin 9.9 gm/dl (10.1-14.3); Lymphocytes # (Auto) 3.3 K/mm3 (1.2-5.4); Lymphocytes % (Auto) 30.6 % (13.4-35.0); Mean Corpuscular HGB Conc 32 % (30-34); Mean Corpuscular Volume 79 fl (79-97); Monocytes # (Auto) 0.9 K/mm3 (0.0-0.8); Monocytes % (Auto) 7.9 % (0.0-7.3); Platelet Count 247 K/mm3 (140-440); Red Blood Count 3.93 M/mm3 (3.65-5.03); Red Cell Distribution Width 17.1 % (13.2-15.2)
[2021-04-01] MEDS: FERROUS SULFATE 325 MG TAB PO SCH (09:24)
[2021-04-01] MEDS: IBUPROFEN 800 MG TAB PO PRN (09:25)
[2021-04-01] MEDS: PRENATAL VIT27-FE FUMARATE-FOLIC ACID VIT TAB PO SCH (09:25)
--- NOTE | 2021-04-01 10:36 | Progress Note ---
Assessment and Plan A: /postop day 2 S/P repeat LTCS with BTL. Anemia. P: Discharge patient home today. Discussed with patient discharge in structions and warning signs. Care of incision and activity restrictions discussed with patient. Advised patient to continue to take her vitamins and iron supplements at home. Advised patient to avoid intercourse, lifting, heavy housework, driving, stair climbing, and tub baths (patient may take showers). Advised patient to go to [facility] office tomorrow 04/02/21 for BP check. Patient voiced understanding of all instructions. Subjective - Subjective Date of service: 04/01/21 Principal diagnosis: day 2 S/P repeat LTCS with BTL Interval history: Patient requests discharge home today as she has kids at home to care for. Per MD, OK to discharge patient home today. Patient denies headache, visual disturbance, nausea or vomiting, cough, shortness of breath, abdominal pain, leg pain, heavy bleeding, or any other problems. Patient reports: appetite normal, voiding normally, pain well controlled, flatus, ambulating normally, no dizzy ambulation, no nauseated [place]: doing well Objective - Vital Signs Latest vital signs: Vital Signs Temp Pulse Resp BP BP Pulse Ox 04/01/21 09:25 20 04/01/21 08:30 98.2 F 106 H 20 140/88 100 04/01/21 00:25 98.2 F 92 H 18 138/93 99 04/01/21 00:22 92 H 150/93 99 03/31/21 16:53 98.0 F 92 H 20 131/88 100 03/31/21 16:38 20 Intake and Output 03/31/21 04/01/21 04/01/21 23:59 07:59 15:59 Intake Total 480 360 240 Balance 480 360 240 Intake: Oral 480 360 240 Other: Total, Intake Amount 240 120 240 # Voids Void 1 1 1 - Exam Cardiovascular: Present: Regular rate Lungs: Present: Clear to auscultation Abdomen: Present: normal appearance, soft, normal bowel sounds. Absent: distention, tenderness, guarding, rigidity Uterus: Present: normal, firm, fundal height below umbilicus. Absent: bogginess, tenderness Extremities: Present: normal. Absent: tenderness, edema Incision: Present: normal, dry, intact - Labs Labs: Abnormal lab results 04/01/21 Range/Units 08:13 Hgb 9.9 L (10.1-14.3) gm/dl MCH 25 L (28-32) pg RDW 17.1 H (13.2-15.2) % [place] % (Auto) 7.9 H (0.0-7.3) % [place] # (Auto) 0.9 H (0.0-0.8) K/mm3
--- NOTE | 2021-04-01 10:42 | Discharge Summary ---
Providers - Providers Date of Admission: 03/30/21 04:53 Date of discharge: 04/01/21 Attending physician: XAVIER VILLANUEVA MD Primary care physician: XAVIER VILLANUEVA MD Hospitalization Reason for admission: section Delivery: Procedure: repeat low transverse Incision: normal, dry, intact Other procedures: tubal ligation complications: none Discharge diagnosis: IUP at term delivered [place] baby: male Pertinent studies: Labs Hospital course: Stable hospital course Condition at discharge: Good Disposition: DC-01 TO HOME OR SELFCARE - Discharge Diagnoses (1) Term delivered Status: Acute (2) Anemia Status: Acute Plan - Discharge Medications Prescriptions: Ibuprofen [Motrin] 800 mg PO Q8HR PRN 21 Days #40 tablet PRN Reason: Pain, Mild (1-3) HYDROcodone/APAP 5-325 [[place] 5/325] 1 each PO Q4HR PRN 21 Days #30 tablet PRN Reason: Pain - Provider Discharge Summary Activity: routine, no sex for 6 weeks, no heavy lifting 4 weeks, no strenuous exercise Diet: routine Instructions: routine Additional instructions: Continue taking your vitamins and iron supplements at home. Follow up at [facility] office tomorrow 04/02/21. Call your doctor immediately for: * Fever > 100.5 * Heavy vaginal bleeding ( >1 pad per hour) * Severe persistent headache * Shortness of breath * Reddened, hot, painful area to leg or breast * Drainage or odor from incision. * Keep incision clean and dry at all times and follow doctor's instructions regarding bathing/showering - Follow up plan Follow up: XAVIER VILLANUEVA MD [Primary Care Provider] - 04/02/21
[2021-04-01 12:49] VITALS: BP 133/81
== END 2021-04-01 13:30 | disposition home or self-care (01) | DRG 766 ==
LOC: APU 04:53 → OB 11:41
PROC: 10D00Z1 Extraction of Products of Conception, Low, Open Approach (ICD-10-PCS; principal; 2021-03-30)
PROC: 0UB70ZZ Excision of Bilateral Fallopian Tubes, Open Approach (ICD-10-PCS; 2021-03-30)
PROC: 3E0234Z Introduction of Serum, Toxoid and Vaccine into Muscle, Percutaneous Approach (ICD-10-PCS; 2021-03-31)
PROC: 3E0134Z Introduction of Serum, Toxoid and Vaccine into Subcutaneous Tissue, Percutaneous Approach (ICD-10-PCS; 2021-03-31)
DX: O34.211 Maternal care for low transverse scar from previous cesarean delivery (principal); Z20.822 Contact with and (suspected) exposure to COVID-19; O64.0XX0 Obstructed labor due to incomplete rotation of fetal head, not applicable or unspecified; O69.81X0 Labor and delivery complicated by cord around neck, without compression, not applicable or unspecified; Z3A.38 38 weeks gestation of pregnancy; Z37.0 Single live birth; O90.81 Anemia of the puerperium; O99.214 Obesity complicating childbirth; Z23 Encounter for immunization; Z30.2 Encounter for sterilization; D64.9 Anemia, unspecified
CPT/HCPCS: 36415; 59025; 80074; 85014; 85018; 85025; 86762; 86850; 86900; 86901; 88302; 96360; G0378; J0690; J1100; J1885; J2270; J2370; J2405; J2590; J2765; J3490; J7120; U0003